=== PATIENT | female | born 1965 | race Caucasian/White ===

== ENCOUNTER 2017-08-08 16:42 | Emergency (ER) | payer OTHER ==
[~2017-08-08] VITALS: Ht 167.6 cm; Wt 77.1 kg
[~2017-08-08 16:42] MED LIST: ATORVASTATIN CA40 M1 PO; BUPROPION HCL300 MG PO; IBU800 MG PO; LISINOPRIL10 M1 PO; METFORMIN HCL500 MG PO; PERCOCET 325 MG1 TA2 PO; SPIRIVA -- 3018 MCG INH; Synthroid,Levo88 MCG PO; TRAMADOL HCL50 MG PO; VIIBRYD40 PO
== END 2017-08-08 19:15 | disposition home or self-care (01) ==
LOC: ED 16:42
DX: R51 Headache (principal); M54.2 Cervicalgia; J44.9 Chronic obstructive pulmonary disease, unspecified; R03.0 Elevated blood-pressure reading, without diagnosis of hypertension; Z79.899 Other long term (current) drug therapy

== ENCOUNTER 2023-02-01 22:02 | Emergency (ER) | payer MEDICAID ==
[~2023-02-01] VITALS: Ht 167.6 cm; Wt 81.6 kg
[2023-02-01] MEDS ORDERED: TRELEGY ELLIPT1 EACH INH (22:18)
[2023-02-01 22:46] LABS: BASO # 0.1 10*3/uL (0.0-0.1); BASO % 0.8 % (0.0-1.0); EOS # 0.1 10*3/uL (0.0-0.4); EOS % 0.8 % (1.0-4.0); HEMATOCRIT 34.6 % (37.0-47.0); LYMPH # 3.3 10*3/uL (1.3-4.4); LYMPH % 24.8 % (27.0-41.0); MEAN CELL VOLUME 100.6 fl (81.0-99.0); MEAN CORPUSCULAR HGB CONC 31.8 g/dl (33.0-37.0); MEAN PLATELET VOLUME 9.6 fl (9.6-12.3); MONO # 1.2 10*3/uL (0.1-1.0); NEUT # 8.4 10*3/uL (2.3-7.9); NEUT % 63.8 % (47.0-73.0); PLATELET COUNT AUTOMATED 264 10*3/uL (130-400); RED BLOOD COUNT 3.44 10*6/uL (4.10-5.10); RED CELL DISTRI WIDTH 13.2 % (0-14.5); WHITE BLOOD COUNT 13.2 10*3/uL (4.8-10.8)
[2023-02-01 23:02] LABS: ALKALINE PHOSPHATASE 59 U/L (46-116); BUN 17 mg/dl (9-23); CHLORIDE 105 mmol/L (98-107); LIPASE 39 U/L (12-53); POTASSIUM 4.3 mmol/L (3.4-5.1); SGPT/ALT 11 U/L (5-49); TOTAL PROTEIN 6.2 gm/dL (6.0-8.0)
[2023-02-01 23:12] LABS: ACT PARTIAL THROMBO TIME 24.8 SECONDS (20.0-32.1)
[2023-02-01 23:14] LABS: BILIRUBIN Negative (Negative); BLOOD Negative (Negative); CLARITY Clear (Clear); COLOR Yellow (Yellow); GLUCOSE Negative (Negative); KETONE Negative (Negative); LEUKO ESTERASE Negative (Negative); NITRITE Negative (Negative); UROBILINOGEN 0.2 E.U./dl (0.0-1.0)
[2023-02-01 23:24] LABS: EPITHELIAL CELLS 31-40
[2023-02-01 23:25] LABS: BACTERIA TRACE
[2023-02-02] MEDS ORDERED: PREDNISONE20 M1 PO (01:06)
[2023-02-02] MEDS ORDERED: VIBRAMYCIN100 MG PO (01:06)
== END 2023-02-02 02:36 | disposition home or self-care (01) ==
LOC: ED 22:02
PROVIDERS: Internal Medicine
DX: J18.9 Pneumonia, unspecified organism (principal); M54.30 Sciatica, unspecified side; E11.9 Type 2 diabetes mellitus without complications; I10 Essential (primary) hypertension; J44.9 Chronic obstructive pulmonary disease, unspecified; F32.A Depression, unspecified; E78.00 Pure hypercholesterolemia, unspecified; Z87.891 Personal history of nicotine dependence